=== PATIENT | female | born 1985 | race African-American/Black ===

== ENCOUNTER 2022-07-09 01:52 | Emergency (ER) | payer MEDICAID ==
[~2022-07-09] VITALS: Ht 157.5 cm; Wt 105.6 kg
[2022-07-09 01:57] VITALS: BP 110/81
[2022-07-09] MEDS ORDERED: AZITHROMYCIN 500 MG TABLET PO ONE (02:30)
[2022-07-09] MEDS ORDERED: ACETAMINOPHEN 325MG TABLET PO ONE (02:30)
[2022-07-09] MEDS ORDERED: ACET-2708 MT (02:31)
[2022-07-09] MEDS ORDERED: AZIT500T8 MT (02:31)
[2022-07-09] MEDS ORDERED: MED4 MT (02:43)
[2022-07-09 04:50] LABS: MONOTEST NEGATIVE (NEGATIVE)
== END 2022-07-09 03:09 | disposition home or self-care (01) ==
LOC: ER 01:52
DX: J02.9 Acute pharyngitis, unspecified (principal); Z98.890 Other specified postprocedural states
CPT/HCPCS: 81025; 86308; 87070; 87430; 99283

== ENCOUNTER 2023-03-22 10:31 | Emergency (ER) | payer MEDICAID, OTHER ==
[~2023-03-22] VITALS: Ht 157.5 cm; Wt 105.7 kg
[~2023-03-22 10:31] MED LIST: ACET-2708 MT; AZIT500T8 MT; MED4 MT
[2023-03-22 10:46] VITALS: BP 130/41; PULSE 97; RESP 18; TEMP 98.5; O2SAT 100
[2023-03-22] MEDS ORDERED: FAMOTIDINE 20MG TABLET PO ONE (12:00)
[2023-03-22] MEDS ORDERED: DIPHENHYDRAMINE 50MG CAPSULE PO ONE (12:00)
[2023-03-22] MEDS ORDERED: PREDNISONE 20MG TABLET PO ONE (12:00)
[2023-03-22] MEDS ORDERED: EPIN0.3P3 IM (12:15)
[2023-03-22] MEDS ORDERED: P20 MT (12:15)
[2023-03-22] MEDS ORDERED: DIPH25CA83 MT (12:15)
[2023-03-22] MEDS ORDERED: DIPHENHYDRAMINE 25MG CAPSULE PO NR (12:15)
== END 2023-03-22 12:53 | disposition home or self-care (01) ==
LOC: ER 10:31
DX: H57.89 Other specified disorders of eye and adnexa (principal); Z98.890 Other specified postprocedural states; Z79.899 Other long term (current) drug therapy
CPT/HCPCS: 99283; J7512; Q0163